=== PATIENT | male | born 2000 | race African-American/Black ===

== ENCOUNTER 2024-04-08 21:04 | Emergency (ER) | payer BC ==
[2024-04-08 22:11] LABS: BASOPHILS ABSOLUTE AUTO 0.1 K/mm3 (0.0-0.2); BASOPHILS PERCENT AUTO 0.7 % (0.0-1.0); EOSINOPHILS PERCENT AUTO 14.8 % (0.0-6.0); HEMATOCRIT 29.6 % (42.0-52.0); HEMOGLOBIN 8.9 gm/dl (14.0-18.0); IMMATURE GRAN ABSOLUTE AUTO 0.12 K/mm3 (0.00-0.05); IMMATURE GRAN PERCENT AUTO 0.9 % (0.0-0.4); LYMPHOCYTES ABSOLUTE AUTO 2.8 K/mm3 (1.0-4.8); LYMPHOCYTES PERCENT AUTO 20.5 % (24.0-44.0); MEAN CORPUSCULAR HEMOGLOBIN 21.7 pg (28.0-32.0); MEAN CORPUSCULAR HGB CONC 30.1 g/dl (32.0-36.0); MEAN PLATELET VOLUME 10.2 fl (9.4-12.4); MONOCYTES ABSOLUTE AUTO 1.6 K/mm3 (0.0-0.8); MONOCYTES PERCENT AUTO 11.3 % (0.0-8.0); NEUTROPHILS ABSOLUTE AUTO 7.2 K/mm3 (1.8-7.7); NEUTROPHILS PERCENT AUTO 51.8 % (41.0-71.0); PLATELET COUNT,PLT 434 K/mm3 (150-400); RED BLOOD CELL COUNT 4.11 M/mm3 (4.52-5.90); WHITE BLOOD CELL COUNT,WBC 13.82 K/mm3 (3.9-11.3)
[2024-04-08] MEDS: methylPREDNISolone Sodium Succinate 125 MG/2 ML SDV IVPUSH ONE (22:11)
[2024-04-08] MEDS: Famotidine 20 MG/2 ML SDV IVPUSH ONE (22:11)
[2024-04-08] MEDS: diphenhydrAMINE 50 MG/ML SDV IVPUSH ONE (22:12)
[2024-04-08] MEDS: cefTRIAXone 2 GM Vial IVPUSH ONE (22:12)
[2024-04-08] MEDS: Sodium Chloride 0.9% 10 ML Syringe FLUSH PRN (22:26)
[2024-04-08 22:31] LABS: A/G RATIO 0.7 (1-2); ALBUMIN 2.5 g/dl (3.4-5.0); ANION GAP 9.8 (5-15); BILIRUBIN TOTAL 0.2 mg/dL (0.2-1.0); CALCIUM 8.2 mg/dL (8.5-10.1); EST CRCL DRUG DOSING (CG) 110.2 mL/min; POTASSIUM,K 3.8 mEq/L (3.5-5.1); PROTEIN TOTAL,TP 6.1 g/dl (6.4-8.2)
[2024-04-08 22:47] LABS: SLIDE REVIEW ABNORMAL SMEAR
== END 2024-04-08 23:29 | disposition home or self-care (01) ==
LOC: JD.ED 21:04
DX: T78.40XA Allergy, unspecified, initial encounter (principal); L03.115 Cellulitis of right lower limb; L03.116 Cellulitis of left lower limb; D64.89 Other specified anemias; Z79.899 Other long term (current) drug therapy
CPT/HCPCS: 36415; 80053; 85025; 96374; 96375; 99283; J0696; J1200; J2919